=== PATIENT | female | born 1985 | race American Indian/Alaskan Native ===

== ENCOUNTER 2016-03-26 22:36 | Emergency (ER) | payer SELFPAY ==
[2016-03-26 22:54] VITALS: BP 118/71
== END 2016-03-27 01:50 | disposition left against medical advice (07) ==
LOC: ED 22:36
DX: N89.8 Other specified noninflammatory disorders of vagina (principal); Z53.21 Procedure and treatment not carried out due to patient leaving prior to being seen by health care provider